=== PATIENT | male | born 1965 | race Caucasian/White ===

== ENCOUNTER 2023-11-18 12:02 | Day surgery (SDC) | payer MEDICARE ==
[~2023-11-18] VITALS: Ht 177.8 cm; Wt 83.2 kg
[~2023-11-18 12:02] MED LIST: ASPIRIN 32325 MG/TAB PO; LR 1,000 ML IV SCH
[2023-11-18] MEDS ORDERED: NORCO 325 MG-51 TAB PO (12:41)
[2023-11-18] MEDS ORDERED: BUSPAR5 MG PO (12:42)
[2023-11-18] MEDS ORDERED: NEURONTIN300 MG/CAP PO (12:43)
[2023-11-18] MEDS ORDERED: DESYREL 50MG50 MG PO (12:43)
[2023-11-18] MEDS ORDERED: ROBAXIN 75750 MG/TAB PO (12:44)
[2023-11-18] MEDS ORDERED: CHANTIX 1MG1 MG PO (12:45)
[2023-11-18] MEDS ORDERED: VIAGRA50 M1 (12:45)
[2023-11-18] MEDS ORDERED: PROAIR HFA0.09 MG/AC IH (12:45)
[2023-11-18] MEDS ORDERED: fentaNYL 50 MCG/ML 2 ML VIAL ONE (13:37)
[2023-11-18] MEDS ORDERED: Lidocaine PF 2% (20 MG/ML) 5 ML VIAL ONE (13:41)
[2023-11-18] MEDS ORDERED: droPERidol 2.5 MG/ML 2 ML VIAL IV PRN (14:00)
[2023-11-18] MEDS ORDERED: hydrALAZINE 20 MG/ML 1 ML VIAL IV PRN (14:00)
[2023-11-18] MEDS ORDERED: HYDROmorphone 1 MG/1 ML SYRINGE [PACU/SDC ONLY] IV PRN (14:00)
[2023-11-18] MEDS ORDERED: fentaNYL 50 MCG/ML 1 ML SYRINGE/VIAL [PACU/SDC ONLY] IV PRN (14:00)
[2023-11-18] MEDS ORDERED: Ondansetron 4 MG/2 ML VIAL IV PRN ×2 (14:00→16:00)
[2023-11-18 15:03] VITALS: BP 117/76; PULSE 70; TEMP 98.6
[2023-11-18] MEDS ORDERED: NS 10 ML IV ONE (15:31)
[2023-11-18] MEDS ORDERED: Topical Skin Adhesive 1 EACH (1 ML) TOP ONE (15:33)
[2023-11-18] MEDS ORDERED: Morphine 4 MG/ML VIAL IV PRN (16:00)
[2023-11-18] MEDS ORDERED: Acetaminophen 325 MG TAB PO PRN (16:00)
[2023-11-18 16:02] VITALS: BP 130/76; PULSE 80; TEMP 97.5
--- NOTE | 2023-11-18 16:02 | NUR ---
PATIENT RETURNED TO BAY 5, ALERT AND ORIENTED X3. DENIES PAIN, NAUSEA AND SHORTNESS OF BREATH. BREATHING REGULAR AND UNLABORED ON ROOM AIR. SKIN WARM AND DRY. NURSE HANDOFF COMPLETED IN ROOM BY COLIN Castro CRNA AND MARCO A Santiago RN. RIGHT CHEST SURGICAL INCISION CLEAN AND DRY WITH SKIN GLUE INTACT. RIGHT NECK SURGICAL INCISION CLEAN AND DRY WITH SKIN GLUE INTACT. SURROUNDING SKIN INTACT. PATIENT HAS NO COMPLAINTS STATING "WHEN DO I GET TO LEAVE". THIS NURSE REVIEWED GOALS OF CARE AND DISCHARGE INTERVENTIONS WITH PATIENT AND SPOUSE. PATIENT VERBALIZED UNDERSTANDING. EXPRESSED THAT HE WAS "READY FOR DISCHARGE". PATIENT HAD CHOCOLATE PUDDING AND CRANBERRY JUICE. BOTH FOOD AND DRINK TOLERATED WELL. NO DYSPHAGIA. CALL LIGHT IN REACH.
[2023-11-18 16:10] VITALS: BP 144/77; PULSE 89
[2023-11-18 16:15] VITALS: BP 120/73; PULSE 81
[2023-11-18 16:21] VITALS: BP 135/79; PULSE 83
--- NOTE | 2023-11-18 16:45 | NUR ---
1626: PATIENT DENIES PAIN, NAUSEA AND SHORTNESS OF BREATH. RIGHT CHEST AND NECK INCISIONS REMAIN CLEAN AND DRY WITH SKIN GLUE INTACT. RIGHT HAND IV REMOVED. GAUZE AND COBAN PLACED OVER SITE. 1629: PATIENT AMBULATED TO RESTROOM WITH STEADY GAIT AND VOIDED. 1630: DISCHARGE TEACHING COMPLETED WITH PRINTED EDUCATION, INSTRUCTIONS AND [place] P[facility] SENT HOME WITH PATIENT. PATIENT AND [facility] VERBALIZED UNDERSTANDING OF EDUCATION. 1645: PATIENT THANKED NURSING STAFF FOR CARE AND WAS DISCHARGED WITH [facility] AND A FRIEND TRANSPORT.
== END 2023-11-18 16:45 | disposition home or self-care (01) ==
LOC: SDCO 12:02
DX: C20 Malignant neoplasm of rectum (principal); C18.9 Malignant neoplasm of colon, unspecified; C79.9 Secondary malignant neoplasm of unspecified site; F17.210 Nicotine dependence, cigarettes, uncomplicated
CPT/HCPCS: C1788; J0690; J2704; J3010; J7120